=== PATIENT | female | born 1990 | race Caucasian/White ===

== ENCOUNTER 2018-01-29 10:03 | Emergency (ER) | payer OTHER ==
[~2018-01-29] VITALS: Ht 165.1 cm; Wt 68.6 kg
[~2018-01-29 10:03] MED LIST: DOCU240C31 PO; IBUP-1222 PO; OXYC-302 PO; PREN1TAB60 PO
[2018-01-29 10:09] VITALS: BP 133/83
[2018-01-29 11:00] LABS: BASOPHILS # (AUTO) 0.01 x10^3/uL (0-0.1); BASOPHILS % (AUTO) 0 % (0-1); EOSINOPHILS # (AUTO) 0.05 x10^3/uL (0-0.4); EOSINOPHILS % (AUTO) 1 % (1-7); LYMPHOCYTES # (AUTO) 1.52 x10^3/uL (1-3.4); LYMPHOCYTES % (AUTO) 19 % (22-44); MD NO; MEAN CORPUSCULAR HGB CONC 34.1 g/dL (32.4-35.8); MEAN PLATELET VOLUME 9.2 fL (7.4-10.4); MONOCYTES # (AUTO) 0.54 x10^3/uL (0.2-0.8); MONOCYTES % (AUTO) 7 % (2-9); NEUTROPHILS # (AUTO) 5.88 x10^3/uL (1.8-6.8); NEUTROPHILS % (AUTO) 74 % (42-75); PLATELET COUNT 265 x10^3/uL (130-400); RED BLOOD COUNT 5.24 x10^6/uL (3.82-5.3); RED CELL DISTRIBUTION WIDTH 13.5 % (9.6-15.2)
[2018-01-29 11:10] LABS: ALBUMIN 4.1 g/dL (3.4-5.0); ANION GAP 6 mmol/L (5-15); CALCIUM 9.1 mg/dL (8.5-10.1); CHLORIDE 106 mmol/L (98-107)
[2018-01-29 11:12] LABS: CULTURE INDICATED? YES; MICROSCOPIC INDICATED
[2018-01-29 11:16] LABS: CREATININE 0.63 mg/dL (0.55-1.02)
== END 2018-01-29 13:35 | disposition home or self-care (01) ==
LOC: ED 11:20
DX: O20.0 Threatened abortion (principal); Z3A.01 Less than 8 weeks gestation of pregnancy
CPT/HCPCS: 36415; 76801; 80048; 81001; 82040; 84702; 85025; 86901; 87086; 99285

== ENCOUNTER 2019-01-09 07:13 | Outpatient (CLI) | payer BC ==
[~2019-01-09] VITALS: Ht 165.1 cm; Wt 75.4 kg
[2019-01-09 07:41] VITALS: BP 123/79
[2019-01-09] MEDS ORDERED: PREN1TAB98 PO (09:03)
[2019-01-09] MEDS ORDERED: VALA500T4 PO (09:04)
== END 2019-01-09 09:35 | disposition home or self-care (01) ==
LOC: LDOP 07:13
PROVIDERS: ATTEND Obstetrics & Gynecology
DX: O26.893 Other specified pregnancy related conditions, third trimester (principal); Z3A.38 38 weeks gestation of pregnancy
CPT/HCPCS: 59025; 99211; G0463